=== PATIENT | male | born 1970 ===

== ENCOUNTER → 2017-06-22 10:00 | Outpatient (CLI) | payer OTHER ==
[~2017-06-22 10:00] MED LIST: HYDROCHLOROTHIA25 MG PO; LOPRESSOR25 MG PO; NORVASC5 MG PO; VASOTEC20 M1 PO; ZOCOR20 MG PO
== END | disposition home or self-care (01) ==
LOC: EKG 10:00 → ADM 11:30 → EDSTATUS 07-02 11:30 → CIR.AMB 07-02 11:30
DX: Z01.810 Encounter for preprocedural cardiovascular examination (principal); K64.2 Third degree hemorrhoids; R19.4 Change in bowel habit; R19.5 Other fecal abnormalities

== ENCOUNTER 2017-08-09 06:15 | Day surgery (SDC) | payer OTHER ==
[2017-08-09] MEDS ORDERED: RECTICARE30 GM TOP (09:51)
[2017-08-09] MEDS ORDERED: PERCOCET 5-3251 EACH PO (09:51)
== END 2017-08-09 12:00 | disposition home or self-care (01) ==
LOC: CIR.AMB 06:15
DX: K64.1 Second degree hemorrhoids (principal); K60.3 Anal fistula